=== PATIENT | female | born 1980 | race Caucasian/White ===

== ENCOUNTER 2016-07-26 09:31 | Inpatient (IN) | payer OTHER ==
[2016-07-27] MEDS ORDERED: ZOFRAN IV PRN (00:22)
[2016-07-27] MEDS ORDERED: TYLENOL PO PRN (00:22)
[2016-07-27] MEDS ORDERED: STADOL IV PRN (00:22)
[2016-07-27] MEDS ORDERED: KEFZOL 1 GM/D5W 50 ML IV PRN (00:22)
[2016-07-27] MEDS ORDERED: AMPICILLIN 2 GM/NS 100 ML IV ONE (00:22)
[2016-07-27] MEDS ORDERED: PEPCID PO PRN (00:22)
[2016-07-27] MEDS ORDERED: PEPCID IV PRN (00:22)
[2016-07-27] MEDS ORDERED: SODIUM CHLORIDE 0.9% INJ SCH (00:30)
[2016-07-27] MEDS ORDERED: PITOCIN 30 UNITS/LR 500 ML IV SCH (00:30)
[2016-07-27] MEDS: LR 1,000 ML IV SCH ×3 (01:10→09:44)
[2016-07-27 02:23] LABS: MANUAL DIFF NEEDED? NO
[2016-07-27 02:32] LABS: BASO% 0.2 % (0.0-0.8); EOS# 0.14 X1000 (0.0-0.7); EOS% 1.1 % (0.0-10.0); HEMATOCRIT 34.2 % (37.0-47.0); HEMOGLOBIN 11.1 g/dL (12.0-16.0); IMM GRAN# 0.04 X1000 (0.0-0.04); IMM GRAN% 0.3 % (0.0-0.5); LYMPH# 2.57 X1000 (1.2-3.4); MCH 28.3 PG (27-31); MCHC 32.5 g/dL (33-37); MCV 87.2 FL (81-99); MONO# 1.09 X1000 (0.11-0.59); MONO% 8.9 % (1.7-9.3); MPV 12.6 FL (7.4-10.4); NEUT% 68.5 % (42.2-75.2); PLT 289 X1000 (130-400); RBC 3.92 XMIL (4.2-5.4)
[2016-07-27] MEDS: AMPICILLIN 1 GM/NS 50 ML IV SCH ×2 (05:15→09:22)
[2016-07-27] MEDS ORDERED: FENTANYL-BUPIV-NS 2 MCG-0.1% 200 ML ONE (07:49)
[2016-07-27] MEDS ORDERED: MARCAINE 0.25% PF ONE (07:49)
[2016-07-27] MEDS ORDERED: MARCAINE 0.25% PF INJ ONE (08:30)
[2016-07-27] MEDS ORDERED: FENTANYL-BUPIV-NS 2 MCG-0.1% 200 ML EPIDURAL ONE (09:00)
[2016-07-27] MEDS ORDERED: MINERAL OIL ONE (09:36)
[2016-07-27] MEDS ORDERED: XYLOCAINE-MPF 1% ONE (09:36)
[2016-07-27] MEDS ORDERED: BENADRYL IV PRN (11:23)
[2016-07-27] MEDS ORDERED: M-M-R II VACCINE SUBQ ONE (11:23)
[2016-07-27] MEDS ORDERED: AMBIEN PO PRN (11:23)
[2016-07-27] MEDS ORDERED: XYLOCAINE-MPF 1% INJ PRN (11:23)
[2016-07-27] MEDS ORDERED: MINERAL OIL MISC PRN (11:23)
[2016-07-27] MEDS ORDERED: BENADRYL PO PRN (11:23)
[2016-07-27] MEDS ORDERED: BOOSTRIX VACCINE IM ONE (11:23)
[2016-07-27] MEDS ORDERED: PERCOCET-5 PO PRN (11:23)
[2016-07-27] MEDS ORDERED: HYDROXYZINE IM PRN (11:23)
[2016-07-27] MEDS ORDERED: PERI MEDS (DERMOPLAST/NUPERCAINAL/TUCKS) MISC PRN (11:23)
[2016-07-27] MEDS ORDERED: CYTOTEC PO PRN (11:23)
[2016-07-27] MEDS ORDERED: NORCO-10 PO PRN (11:23)
[2016-07-27] MEDS ORDERED: HYDROXYZINE PO PRN (11:23)
[2016-07-27] MEDS ORDERED: PERCOCET-10 PO PRN (11:23)
[2016-07-27] MEDS ORDERED: PITOCIN IM PRN (11:23)
[2016-07-27] MEDS ORDERED: PITOCIN 30 UNITS/LR 500 ML IV ONE (11:23)
[2016-07-27] MEDS ORDERED: PITOCIN 20 UNITS/LR 1,000 ML IV SCH (11:30)
--- NOTE | 2016-07-27 13:36 | OPERATIVE NOTE ---
PROCEDURE DATE: 07/27/2016 DELIVERING PHYSICIAN: Dr. Jamar Cadena. TYPE OF DELIVERY: Spontaneous controlled vaginal delivery. ANESTHESIA: Epidural. FINDINGS: At 11:15 a 7 pound 12 ounce male was delivered in occiput anterior presentation. Apgars were 9 at 1 minute and 10 at 5 minutes. SUMMARY: Macrina No is a 36-year-old 3, para 2-0-0-2, at term gestation. Her blood type is O negative rubella immune. Hepatitis B surface antigen, HIV is negative. Group B strep is positive. Ms. No was brought into the labor and delivery last night to begin group B strep antibiotics and this morning IV Pitocin was begun. She was 4 cm dilated. She had spontaneous rupture of membranes with clear fluid. An epidural was placed for labor pain management. She progressed to labor without signs of distress or dystocia. She became complete and began pushing. She very quickly crowned. At that point, she was placed in the dorsal lithotomy position. Perineum was prepped and draped in the usual fashion. Spontaneous controlled vaginal delivery occurred. Once the infant's head was delivered, the oropharynx was bulb suctioned. The shoulders and body delivered without complications. Cord was clamped and cut. The was handed to the nurses for further care and evaluation. Cord blood was obtained. Placenta was spontaneously delivered. It was intact. There were no cervical or vaginal lacerations and blood loss was estimated at 150 mL. Patient remained in the LDR recovering without difficulty.
[2016-07-27] MEDS: MOTRIN PO PRN (19:28)
[2016-07-27] MEDS: NEXIUM PO SCH (21:03)
[2016-07-27] MEDS: PERICOLACE PO SCH (21:03)
[2016-07-27] MEDS: PRECARE PO SCH (21:03)
[2016-07-28 06:33] LABS: HEMATOCRIT 28.2 % (37.0-47.0); HEMOGLOBIN 8.9 g/dL (12.0-16.0); MCH 27.9 PG (27-31); MCHC 31.6 g/dL (33-37); MCV 88.4 FL (81-99); MPV 12.9 FL (7.4-10.4); RBC 3.19 XMIL (4.2-5.4)
[2016-07-28] MEDS: MOTRIN PO PRN ×2 (09:16→20:10)
[2016-07-28] MEDS: NORCO-5 PO PRN ×2 (09:16→20:10)
[2016-07-28] MEDS: PRECARE PO SCH (20:04)
[2016-07-28] MEDS: PERICOLACE PO SCH (20:04)
[2016-07-28] MEDS: NEXIUM PO SCH (20:04)
[2016-07-29] MEDS: MOTRIN PO PRN (05:37)
[2016-07-29] MEDS: NORCO-5 PO PRN (05:37)
[2016-07-29 08:13] VITALS: BP 107/80
--- NOTE | 2016-07-29 11:28 | DISCHARGE SUMMARY ---
ADMISSION DATE: 07/27/2016 DISCHARGE DATE: 07/29/2016 ADMITTING DIAGNOSIS: Term , for induction. DISCHARGE DIAGNOSIS: Term , delivered via vaginal delivery. CONDITION: Stable. DIET: As tolerated. ACTIVITY: Routine . MEDICATIONS: [place] 5, Motrin 800, vitamins with iron and stool softeners. FOLLOWUP: She is to follow up in [address] Cadena. She did receive RhoGAM. Please refer to Ms. No's records, H and P and delivery note. She had an uncomplicated vaginal delivery and has done well afterwards. Desiring discharge today, without complaints. PHYSICAL EXAMINATION: VITAL SIGNS: Stable. She is afebrile. GENERAL: She is alert and cooperative, in no distress. NECK: Supple. LUNGS: Clear. HEART: Regular sinus rhythm. ABDOMEN: Soft. Slightly distended. Uterus is firm and nontender. EXTREMITIES: There is +3 lower extremity edema. Post delivery hemoglobin and hematocrit are 8.9 and 28.2. We will discharge with the above instructions.
== END 2016-07-29 12:15 | disposition home or self-care (01) | DRG 775 ==
LOC: P.LD 07-27 00:18 → P.WC 07-27 21:30
PROVIDERS: ADMIT Obstetrics & Gynecology; ATTEND Obstetrics & Gynecology
PROC: 10E0XZZ Delivery of Products of Conception, External Approach (ICD-10-PCS; principal; 2016-07-27)
PROC: 3E033VJ Introduction of Other Hormone into Peripheral Vein, Percutaneous Approach (ICD-10-PCS; 2016-07-27)
PROC: 3E0234Z Introduction of Serum, Toxoid and Vaccine into Muscle, Percutaneous Approach (ICD-10-PCS; 2016-07-29)
DX: O26.893 Other specified pregnancy related conditions, third trimester (principal); F17.210 Nicotine dependence, cigarettes, uncomplicated; Z3A.39 39 weeks gestation of pregnancy; Z37.0 Single live birth; Z67.41 Type O blood, Rh negative; O99.334 Smoking (tobacco) complicating childbirth; O99.824 Streptococcus B carrier state complicating childbirth
CPT/HCPCS: 36415; 59025; 85025; 85027; 85461; 86592; 86900; 86901; J0290; J2590; J2790; J7120; S0020